=== PATIENT | female | born 1935 | race Caucasian/White ===

== ENCOUNTER 2020-06-20 10:24 | Observation (INO) | payer MEDICARE ==
[~2020-06-20] VITALS: Ht 167.6 cm; Wt 63.5 kg
[~2020-06-20 10:24] MED LIST: CYANOCOBAL1000 MCG/1 SC
[2020-06-20 11:51] LABS: HEMOGLOBIN 10.7 gm/dl (12.3-15.3); RED BLOOD COUNT 3.51 M/UL (4.00-5.10); WHITE BLOOD COUNT 8.2 K/UL (4.5-11.0)
[2020-06-20 12:25] LABS: BUN/CREATININE RATIO 26 (0-10)
[2020-06-20] MEDS ORDERED: ALENDRONATE SOD70 MG PO (13:23)
[2020-06-20] MEDS ORDERED: ENTRESTO 24 MG1 EACH PO (13:35)
[2020-06-20] MEDS ORDERED: FUROSEMIDE40 MG PO (13:36)
[2020-06-20] MEDS ORDERED: METOPROLOL SUCC25 MG PO (13:38)
[2020-06-20] MEDS ORDERED: POTASSIUM CHLO10 MEQ PO (13:40)
[2020-06-20] MEDS ORDERED: BAYER BACK & B1 EACH PO (14:43)
[2020-06-20] MEDS ORDERED: IRON325 M1 PO (14:47)
[2020-06-21 02:49] LABS: HEMOGLOBIN 10.1 gm/dl (12.3-15.3); RED BLOOD COUNT 3.34 M/UL (4.00-5.10)
[2020-06-21 02:53] LABS: WHITE BLOOD COUNT 5.7 K/UL (4.5-11.0)
[2020-06-21 03:15] LABS: BUN/CREATININE RATIO 21 (0-10)
[2020-06-21] MEDS ORDERED: DOXYCYCLINE HY100 MG PO (08:36)
[2020-06-21] MEDS ORDERED: KEFLEX CAP 250250 MG PO (08:36)
== END 2020-06-21 12:03 | disposition home or self-care (01) ==
LOC: ER1 10:24 → M/S 13:16 → CDU 13:16 → M/S 22:46
PROVIDERS: Emergency Medicine; Physician Assistant Medical; ADMIT Internal Medicine
DX: L03.113 Cellulitis of right upper limb (principal); E87.6 Hypokalemia; E83.42 Hypomagnesemia; I11.0 Hypertensive heart disease with heart failure; I50.22 Chronic systolic (congestive) heart failure; M81.0 Age-related osteoporosis without current pathological fracture; E11.9 Type 2 diabetes mellitus without complications; Z20.822 Contact with and (suspected) exposure to COVID-19; Z83.3 Family history of diabetes mellitus; Z88.8 Allergy status to other drugs, medicaments and biological substances; Z79.82 Long term (current) use of aspirin; Z79.899 Other long term (current) drug therapy
CPT/HCPCS: 36415; 73090; 73110; 73130; 80048; 80053; 83735; 84132; 84550; 85025; 85027; 85652; 86140; 87040; 96365; 96366; 96367; 96375; 96376; 99284; G0378; J0696; J3370; J3475; J3480; J7050; J7070; U0002

== ENCOUNTER → 2020-06-23 | Outpatient (CLI) | payer MEDICARE ==
[~2020-06-23] MED LIST changes: +ALENDRONATE SOD70 MG PO; +BAYER BACK & B1 EACH PO; +DOXYCYCLINE HY100 MG PO; +ENTRESTO 24 MG1 EACH PO; +FUROSEMIDE40 MG PO; +IRON325 M1 PO; +KEFLEX CAP 250250 MG PO; +METOPROLOL SUCC25 MG PO; +POTASSIUM CHLO10 MEQ PO
[2020-06-23 09:42] LABS: BUN/CREATININE RATIO 24 (0-10)
== END ==
LOC: LAB 08:29
PROVIDERS: Internal Medicine
DX: E87.6 Hypokalemia (principal)
CPT/HCPCS: 36415; 80048